=== PATIENT | male | born 1955 | race Caucasian/White ===

== ENCOUNTER 2023-12-07 10:24 | Outpatient (CLI) | payer MEDICARE ==
[~2023-12-07] VITALS: Ht 182.9 cm; Wt 71.7 kg
[2023-12-07] MEDS: albuterol 2.5 MG/3 ML nebule NEB ONE (11:11)
[2023-12-07 11:12] VITALS: PULSE 57; RESP 16; O2SAT 98
== END 2023-12-07 23:59 | disposition home or self-care (01) ==
LOC: RT 10:24
PROVIDERS: ATTEND Physician Assistant
DX: J44.9 Chronic obstructive pulmonary disease, unspecified (principal)
CPT/HCPCS: 94060; 94760